=== PATIENT | female | born 1965 | race Hispanic/Latino ===

== ENCOUNTER → 2021-08-09 | Outpatient (CLI) | payer BC | END | disposition home or self-care (01) | LOC: RAH 10:00 | PROVIDERS: ATTEND Orthopaedic Surgery Sports Medicine | DX: M75.101 Unspecified rotator cuff tear or rupture of right shoulder, not specified as traumatic (principal); M19.011 Primary osteoarthritis, right shoulder | CPT/HCPCS: 73221 ==

== ENCOUNTER 2021-10-22 06:30 | Day surgery (SDC) | payer BC ==
[2021-10-19 10:41] LABS: BASOPHILS % (AUTO) 0.8 % (0.0-5.0); EOSINOPHILS % (AUTO) 3.3 % (0.0-8.0); HEMATOCRIT 40.5 % (36-48); MEAN CORPUSCULAR HGB CONC 32.3 g/dL (32.0-36.0); NEUTROPHILS % (AUTO) 62.6 % (40.0-77.0); PLATELET COUNT (AUTO) 239 K/uL (130-400); RED BLOOD CELL COUNT(AUTO) 4.22 MIL/uL (4.00-5.50); RED CELL DISTRIBUTION WIDTH 12.6 % (11.0-15.5); WHITE BLOOD COUNT (AUTO) 6.1 K/uL (4.8-10.8)
[2021-10-19 10:58] LABS: CREATININE 0.9 mg/dL (0.5-1.5); POTASSIUM 4.1 mmol/L (3.5-5.1)
[2021-10-22] VITALS (16 sets, daily range): BP systolic 106–131; BP diastolic 55–74
[~2021-10-22] VITALS: Ht 157.5 cm; Wt 83.5 kg
[~2021-10-22 06:30] MED LIST: CEFAZOLIN SODIUM 1 GM VIAL IVP SCH; IRON1CAP28 PO; MULT-1367 PO; [UNRECOGNIZED DRUG - OTHER] PO
[2021-10-22] MEDS ORDERED: LACTATED RINGERS 1000ML 1,000 ML IV ONE (07:45)
[2021-10-22] MEDS ORDERED: EPINEPHRINE 1 MG/ML 30ML VIAL IJ ONE (08:08)
[2021-10-22] MEDS ORDERED: [UNRECOGNIZED DRUG - OTHER] PO (08:21)
[2021-10-22] MEDS ORDERED: SUCCINYLCHOLINE CHLORIDE 20 MG/ML 10 ML VIAL ONE (08:43)
[2021-10-22] MEDS ORDERED: LIDOCAINE PF 100MG/5ML (2%) SYRINGE 5ML ONE (08:43)
[2021-10-22] MEDS ORDERED: ROCURONIUM 10MG/1ML SYR 10 MG/ML ML ONE (08:44)
[2021-10-22] MEDS ORDERED: PROPOFOL 10 MG/ML 20ML VIAL IV ONE (08:44)
[2021-10-22] MEDS ORDERED: GLYCOPYRROLATE 1 MG/5 ML SYRINGE ONE (08:44)
[2021-10-22] MEDS ORDERED: NEOSTIGMINE 5MG/5ML SYR IV ONE (08:44)
[2021-10-22] MEDS ORDERED: MIDAZOLAM HCL 1 MG/ML 2ML VIAL ONE (08:44)
[2021-10-22] MEDS ORDERED: ROPIVACAINE 0.5% 5MG/ML 30ML IJ ONE (08:48)
[2021-10-22] MEDS ORDERED: EPHEDRINE SULFATE 50 MG/ML AMPULE ONE (09:11)
[2021-10-22] MEDS ORDERED: PHENYLEPHRINE HCL 10 MG/ML 1ML VIAL IV ONE ×2 (10:03→10:38)
[2021-10-22] MEDS ORDERED: ONDANSETRON 4MG INJ ONE (10:29)
[2021-10-22] MEDS ORDERED: IBUP-2070 PO (11:28)
[2021-10-22] MEDS ORDERED: HYDR-4060 PO (11:28)
[2021-10-22] MEDS ORDERED: CEPH500B PO (11:28)
== END 2021-10-22 13:20 | disposition home or self-care (01) ==
LOC: DAH 06:30
PROVIDERS: ATTEND Orthopaedic Surgery
DX: M75.101 Unspecified rotator cuff tear or rupture of right shoulder, not specified as traumatic (principal); M75.41 Impingement syndrome of right shoulder; R29.898 Other symptoms and signs involving the musculoskeletal system; G89.29 Other chronic pain; Z79.899 Other long term (current) drug therapy
CPT/HCPCS: 29824; 29826; 29827; 36415; 64415; 76942; 80048; 85025; 87635; A4215; A4221; A4222; A4223; A4565; A4649 ×3; A4663; A4930; A6204; C1713; C9803; G0168; J0171; J0330; J0690; J2001; J2250; J2370; J2405; J2704; J2710; J2795; J3490 ×2; J7120